=== PATIENT | female | born 1985 | race Caucasian/White ===

== ENCOUNTER 2020-10-05 13:07 | Outpatient (REF) | payer OTHER, SELFPAY | END 2020-10-05 13:08 | disposition home or self-care (01) | LOC: HO.LAB 13:07 | PROVIDERS: Visit Provider Nurse Practitioner Family | DX: J32.1 Chronic frontal sinusitis (principal) | CPT/HCPCS: 36415; U0003; U0005 ==

== ENCOUNTER 2021-07-27 08:46 | Outpatient (REF) | payer OTHER, SELFPAY ==
[2021-07-27 11:41] LABS: MANUAL DIFF FLAG NO
[2021-07-27 11:44] LABS: Basophils Absolute Auto 0.1 X10*3/uL (0.0-0.2); Basophils Percent Auto 0.9 % (0-2); Eosinophils Absolute Auto 0.5 X10*3/uL (0.0-0.4); Eosinophils Percent Auto 4.9 % (0-4); Hematocrit 43.8 % (37.0-47.0); Hemoglobin 14.3 g/dl (12.0-16.0); Imm Gran Abs Auto 0.06 X10*3/uL (0.00-0.03); Imm Gran Pct Auto 0.6 % (0.0-0.4); Lymphocytes Absolute Auto 2.5 X10*3/uL (1.2-4.9); Lymphocytes Percent Auto 24.4 % (20-40); Mean Corpuscular HGB Conc 32.6 g/dl (31.0-35.0); Mean Corpuscular Hemoglobin 29.7 pg (27.0-33.0); Mean Corpuscular Volume 91.1 fL (80.0-98.0); Monocytes Percent Auto 9.5 % (2-11); Neutrophils Absolute Auto 6.2 x10*3/uL (2.0-8.3); Neutrophils Percent Auto 59.7 % (45-73); Platelet Count 414 X10*3/uL (160-400); Red Blood Count 4.81 X10*6/uL (4.20-5.50); Red Cell Distribution Width 13.8 % (11.0-16.0); White Blood Count 10.3 X10*3/uL (4.8-10.8)
[2021-07-27 12:38] LABS: Alanine Aminotransferase 16 U/L (0-31); Albumin Level 4.3 g/dL (3.5-5.0); Alkaline Phosphatase 101 U/L (39-117); Anion Gap 14 (12-20); Aspartate Amino Transferase 20 U/L (5-31); Bilirubin Total 0.5 mg/dL (0.0-1.0); Blood Urea Nitrogen 12 mg/dL (9-16); Calcium 9.7 mg/dL (8.4-10.2); Carbon Dioxide 26 mmol/L (22-29); Chloride 104 mmol/L (96-108); Estimated Glomerular Filt Rate > 60; Glucose Random 109 mg/dL (60-115); Potassium 4.8 mmol/L (3.3-5.1); Sodium 139 mmol/L (135-145); Total Protein 7.2 g/dL (6.5-8.0)
== END 2021-07-27 08:47 | disposition home or self-care (01) ==
LOC: HO.HMGCLDS 08:46
PROVIDERS: PCP Internal Medicine; Visit Provider Internal Medicine
DX: B35.3 Tinea pedis (principal); L03.90 Cellulitis, unspecified
CPT/HCPCS: 36415; 80053; 85025

== ENCOUNTER 2022-01-01 13:49 | Emergency (ER) | payer OTHER, SELFPAY ==
[2022-01-01 15:11] VITALS: BP 150/73; PULSE 113; RESP 19; TEMP 36.4; O2SAT 98; BMI 27.8
--- NOTE | 2022-01-01 18:34 | ED.SKABFB ---
HPI - Skin/Abscess/Foreign Bdy General Chief complaint: Skin/Abscess/Foreign Body Stated complaint: wound check burn work related Time Seen by Provider: 01/01/22 18:15 Source: patient Mode of arrival: ambulatory Limitations: no limitations History of Present Illness HPI narrative: Patient presents emergency department for evaluation of a second-degree burn to her left forearm. She states that she has been followed by her primary care provider was initially being treated with Silvadene, 2 days ago was placed on doxycycline and Bactrim as there was concern for superficial infection. She was advised to have the [place] looked at as there was any worsening or spread. She states that since yesterday she has noticed some spreading of the erythema to the medial aspect of the burn, redness is described as small red bumps. Related Data Previous Rx's Medication Instructions Recorded cetirizine 10 mg tablet (Allergy 10 mg PO DAILY 90 Days #90 tab 07/30/20 Relief (cetirizine)) terbinafine HCl 250 mg tablet 250 mg PO DAILY 14 Days #14 tab 07/27/21 albuterol sulfate 90 mcg/actuation 1 inh INHALATION QID PRN #6.7 g 11/08/21 aerosol inhaler silver sulfadiazine 1 % topical 1 appl TOPICAL BID #25 g 12/28/21 cream (Silvadene) doxycycline hyclate 100 mg tablet 100 mg PO BID 7 Days #14 tab 12/30/21 sulfamethoxazole 800 1 tab PO Q12H 7 Days #14 tab 12/30/21 mg-trimethoprim 160 mg tablet (Bactrim DS) Allergies Allergy/AdvReac Type Severity Reaction Status Date / Time tree nuts Allergy Intermediate stomach Verified 12/30/21 08:13 upset, hives, itchiness seafood Allergy Unknown Anaphylaxis Verified 12/30/21 08:13 shellfish Allergy Unknown Anaphylaxis Verified 12/30/21 08:13 Review of Systems Review of Systems: skin: Positive second-degree burn to forearm Yes all other systems are reviewed and are negative PMFSH Past Medical History Attestation statement: The following information was validated with the patient. Source: old records reviewed Family History Family History Maternal Grandmother Substance use disorder Mental health disorder Paternal Grandfather No problems noted. Maternal Grandfather Mental health disorder Social History Social History Housing: Apartment Patient Tobacco Use Status: Current everyday Tobacco user Cigarettes Per Day: 10 e-Cigarette/Vaping Use: Never Used Advance Directives: No Advance Directives Information Provided: Yes Current occupational status: unemployed Physical Exam Vital Signs: Vital Signs: Last Vital Signs Temp 97.5 F 01/01/22 15:11 Pulse 69 01/01/22 18:48 Resp 16 01/01/22 18:48 BP 121/65 01/01/22 18:48 Pulse Ox 96 01/01/22 18:48 BMI result Body Mass Index 27.8 Vital signs have been reviewed as normal and appeared to be correct. Blood pressure normal.? Heart rate normal.? Respiration rate normal. Temperature normal.? Oxygen saturation normal. Appearance: Alert.?Oriented to person, place and time. No acute distress.?Normal affect. Eyes: Pupils equal, round and reactive to light.? ENT: Pharynx normal.?? Neck: Normal inspection.? Neck supple.?? CVS: Heart sounds normal. Normal heart rate and rhythm.? Pulses normal.?? Respiratory: No respiratory distress.? Lung sounds clear to auscultation bilaterally?? Abdomen: Soft and non-tender. ?? Skin: Skin warm and dry.? Normal skin color. Forearm second-degree burn, medial aspect where she was concern for spread with small erythematous vesicles, areas of the wound are weeping. Extremities: No lower extremity edema.? Neuro: Moves all extremities spontaneously. Sensation intact bilaterally. No motor deficits Ambulates with normal steady gait. Course Course Course Narrative: Patient is a 36-year-old female presenting seen in the emergency department for evaluation of secondary agree burn to her left forearm that she sustained while at work. Initially was treated with Silvadene cream, and 2 days ago was placed on doxycycline and Bactrim as there was concern for infection. Today the worsening or spread that she is concerned about presents as small vesicles to the medial aspect which appears to be no reactive dermatitis either from moisture buildup, weeping from the wound, or application of the Silvadene cream to healthy skin, cannot completely exclude reaction to the bandage she has been using to cover the arm. Advised patient to continue taking the antibiotics as currently prescribed. Follow up with her primary care doctor in 2 days as previously scheduled. Discussed reasons to return back to the emergency department. All questions were answered and patient was discharged home in stable condition. Discharge Plan Discharge Clinical Impression: Second degree burn of forearm Patient Disposition: Home, Self-Care Instructions: Second Degree Burn (ED) Additional Instructions: Continue taking the antibiotics as prescribed by your primary care provider, follow-up at the clinic in 2 days. May return to the emergency department at any time with any new or worsening symptoms or concerns. Prescriptions: No Action cetirizine [Allergy Relief (cetirizine)] 10 mg tablet 10 mg PO DAILY 90 Days Qty: 90 0RF terbinafine HCl 250 mg tablet 250 mg PO DAILY 14 Days Qty: 14 0RF sulfamethoxazole-trimethoprim [Bactrim DS] 800-160 mg tablet 1 tab PO Q12H 7 Days Qty: 14 0RF doxycycline hyclate 100 mg tablet 100 mg PO BID 7 Days Qty: 14 0RF albuterol sulfate 90 mcg/actuation HFA aerosol inhaler 1 inh inhalation QID PRN (Reason: shortness of breath or wheezing) Qty: 6.7 1RF silver sulfadiazine [Silvadene] 1 % cream 1 appl topical BID Qty: 25 0RF Rx Instructions: apply a 1.5 mm thickness Interventions: ED Discharge Assessment Last Done: 01/01/22 18:50 Discharge Date/Time: 01/01/22 18:51
[2022-01-01 18:48] VITALS: BP 121/65; PULSE 69; RESP 16; O2SAT 96
== END 2022-01-01 18:51 | disposition home or self-care (01) ==
PROVIDERS: Emergency Provider Internal Medicine; PCP Internal Medicine
DX: T22.212D Burn of second degree of left forearm, subsequent encounter (principal); T31.0 Burns involving less than 10% of body surface; B99.8 Other infectious disease; X08.8XXD Exposure to other specified smoke, fire and flames, subsequent encounter
CPT/HCPCS: 99282; 99283

== ENCOUNTER 2022-01-03 11:25 | Outpatient (REF) | payer OTHER, SELFPAY | END 2022-01-03 11:26 | disposition home or self-care (01) | LOC: HO.LNP 11:25 | PROVIDERS: Visit Provider Physician Assistant | DX: T22.219A Burn of second degree of unspecified forearm, initial encounter (principal); L03.114 Cellulitis of left upper limb | CPT/HCPCS: 87071; 87205 ==

== ENCOUNTER 2022-01-07 08:00 | Outpatient (RCR) | payer OTHER, SELFPAY | END 2022-01-31 11:50 | disposition home or self-care (01) | LOC: HO.WCC 08:00 | PROVIDERS: PCP Internal Medicine; Visit Provider Physician Assistant | DX: T22.212D Burn of second degree of left forearm, subsequent encounter (principal); L23.89 Allergic contact dermatitis due to other agents; T31.0 Burns involving less than 10% of body surface; X15.0XXD Contact with hot stove (kitchen), subsequent encounter; Z79.2 Long term (current) use of antibiotics; Z79.52 Long term (current) use of systemic steroids; Z87.891 Personal history of nicotine dependence | CPT/HCPCS: 16020; 99212 ==

== ENCOUNTER 2022-02-08 12:51 | Outpatient (REF) | payer OTHER, SELFPAY ==
[2022-02-08 13:53] LABS: Hematocrit 41.9 % (37.0-47.0); Hemoglobin 13.8 g/dl (12.0-16.0); Mean Corpuscular HGB Conc 32.9 g/dl (31.0-35.0); Mean Corpuscular Hemoglobin 29.6 pg (27.0-33.0); Mean Corpuscular Volume 89.9 fL (80.0-98.0); Mean Platelet Volume 9.8 fL (9.4-12.3); Platelet Count 233 X10*3/uL (160-400); Red Blood Count 4.66 X10*6/uL (4.20-5.50); Red Cell Distribution Width 13.5 % (11.0-16.0); White Blood Count 5.7 X10*3/uL (4.8-10.8)
[2022-02-08 14:25] LABS: Alanine Aminotransferase 20 U/L (0-31); Alkaline Phosphatase 74 U/L (39-117); Anion Gap 11 (12-20); Aspartate Amino Transferase 41 U/L (5-31); Bilirubin Direct < 0.2 mg/dL (0.0-0.5); Bilirubin Total < 0.2 mg/dL (0.0-1.0); Blood Urea Nitrogen 11 mg/dL (9-16); Calcium 9.1 mg/dL (8.4-10.2); Carbon Dioxide 25 mmol/L (22-29); Chloride 109 mmol/L (96-108); Estimated Glomerular Filt Rate > 60; Glucose Random 87 mg/dL (60-115); Potassium 4.9 mmol/L (3.3-5.1); Sodium 140 mmol/L (135-145)
[2022-02-08 16:04] LABS: Albumin Level 4.2 g/dL (3.5-5.0)
== END 2022-02-08 12:52 | disposition home or self-care (01) ==
LOC: HO.HMGCLDS 12:51
PROVIDERS: PCP Internal Medicine; Visit Provider Internal Medicine
DX: K52.9 Noninfective gastroenteritis and colitis, unspecified (principal)
CPT/HCPCS: 36415; 80048; 80076; 85027

== ENCOUNTER 2022-06-24 08:39 | Outpatient (REF) | payer OTHER, SELFPAY ==
[2022-06-24 09:12] LABS: Binax Internal Control QC Valid; Binax Now Covid-19 Ag Negative (Negative)
== END 2022-06-24 08:40 | disposition home or self-care (01) ==
LOC: HO.HMGCLDS 08:39
PROVIDERS: PCP Internal Medicine; Visit Provider Emergency Medicine
DX: Z20.822 Contact with and (suspected) exposure to COVID-19 (principal); J06.9 Acute upper respiratory infection, unspecified
CPT/HCPCS: 87811; C9803

== ENCOUNTER 2023-02-07 15:51 | Emergency (ER) | payer OTHER, SELFPAY ==
--- NOTE | ~2023-02-07 | CT_ITS ---
EXAMINATION: CT ABDOMEN AND PELVIS WITHOUT CONTRAST CLINICAL INFORMATION: Bilateral flank pain and hematuria. COMPARISON: None available. TECHNIQUE: Multidetector volumetric imaging was performed from the superior aspect of the liver through the pubic symphysis. Sagittal and coronal reformatted images were obtained on the technologist's workstation. This CT examination was performed using dose optimization techniques as appropriate, variously including the following: *Automated exposure control *Adjustment of mA and/or kV according to patient size (this includes techniques or standardized protocols for targeted exams where dose is matched to indication/reason for exam; i.e. extremities or head) *Use of iterative reconstruction technique DLP: 593 mGy-cm FINDINGS: LUNG BASES: The visualized lung bases are unremarkable. LIVER, GALLBLADDER, AND BILIARY TREE: The noncontrast liver is normal in size and contour. No biliary ductal dilatation is present. The gallbladder is unremarkable with no evidence of radiopaque gallstones, gallbladder wall thickening, or obvious pericholecystic inflammatory changes. PANCREAS: Unremarkable. SPLEEN: Unremarkable. ADRENAL GLANDS: Unremarkable. KIDNEYS AND URETERS: The kidneys are symmetric in size. No renal or ureteral calculus. No hydronephrosis or perinephric stranding. BLADDER: Decompressed. GASTROINTESTINAL TRACT: Wall thickening of the mid small bowel loops in the left upper abdomen with mild surrounding inflammatory changes. No small bowel obstruction. Appendix is within normal limits. ABDOMINAL WALL: No significant hernia is appreciated. LYMPH NODES: No bulky abdominal or pelvic lymphadenopathy. VASCULAR: Normal caliber abdominal aorta. PELVIC VISCERA: The uterus and adnexa are unremarkable. OSSEOUS STRUCTURES: No destructive bone lesions. CT/CT abdomen pelvis wo IV con IMPRESSION: No nephrolithiasis or hydronephrosis. Mid small bowel wall thickening with mild surrounding inflammatory changes. This may represent an infectious or inflammatory enteritis. Advise clinical correlation.
[2023-02-07 16:32] VITALS: BP 144/94; PULSE 90; RESP 18; TEMP 36.6; O2SAT 95
[2023-02-07 17:50] LABS: Appearance Urine Clear; Color Urine Yellow; Glucose Urine UA Negative (Negative); Leukocyte Esterase Urine Negative (Negative); Nitrite Urine Negative (Negative); PH 5.5 (5.0-9.0); Specific Gravity - Urine >= 1.030 (1.005-1.025); UMIC TRIGGER UACC YES; Urine Blood Trace (Negative); Urine Ketones 15 mg/dL (Negative); Urine Protein Negative (Neg-Trace)
[2023-02-07 17:57] LABS: Bacteria Urine 1+ (None Seen); Hyaline Casts Urine 0-2 /LPF (0-2); WBC Urine 0-5 /HPF (0-5)
[2023-02-07 19:03] VITALS: BP 129/76; PULSE 61; RESP 18; TEMP 36.6; O2SAT 98
--- NOTE | 2023-02-07 21:13 | ED.BACK ---
HPI - Back Pain/Injury General Chief Complaint: Back Pain/Injury Stated Complaint: Lower back pain Time Seen by Provider: 02/07/23 20:17 Source: patient Mode of arrival: ambulatory Limitations: no limitations History of Present Illness HPI Narrative: Patient is a 37-year-old female presents emergency department for evaluation of lower back pain. Reports onset approximately 1 month ago with intermittent in nature. Two weeks ago pain was worsening. She was evaluated at an urgent care center, received an injection of Toradol and subsequently was discharged home with Toradol p.o., Lidoderm patches topically, and cyclobenzaprine. She reports minimal improvement with these medications. She states that she return to work after 1 week, and she was working short chips but still experiencing pain. Yesterday she worked a longer shift in pain was much more severe upon her return home. She does not have a follow-up with her PCP until February 24. She endorses a single episode of vomiting 2 days ago but has had persistent nausea with this. Denies recent precipitating injury, fevers, chills, burning with micturition, urinary frequency/urgency/hesitancy, bladder or bowel dysfunction, numbness or tingling of the perineum. She has been experiencing intermittent numbness of the bilateral legs which she reports is not uncommon for her to experience with sciatica.. Denies any recent surgical procedures, any known immune compromising conditions, personal history of cancer, or IV drug usage. MD elicited complaint: back pain Related Data Home Medications Medication Instructions Recorded Confirmed levocetirizine 5 mg tablet 5 mg PO DAILY 12/26/22 Previous Rx's Medication Instructions Recorded albuterol sulfate 90 mcg/actuation 1 inh inhalation QID PRN shortness 11/08/21 aerosol inhaler of breath or wheezing #6.7 grams fluticasone propionate 50 1 spray intranasal DAILY #9.9 mL 12/26/22 mcg/actuation nasal spray,suspension (Flonase Allergy Relief) miconazole nitrate 2 % topical 1 appl topical BID PRN pain (scale 12/30/22 cream (Antifungal (miconazole)) score 7-10) 7 days #28 grams cyclobenzaprine 10 mg tablet 10 mg PO BEDTIME PRN muscle spasm 01/24/23 #14 tabs ketorolac 10 mg tablet 10 mg PO Q8H PRN pain #15 tabs 06/06/23 lidocaine 4 % topical patch 1 patch topical DAILY PRN pain #15 01/24/23 (AsperFlex (lidocaine)) ea prednisone 20 mg tablet 40 mg PO DAILY #10 tabs 02/07/23 Allergies Allergy/AdvReac Type Severity Reaction Status Date / Time tree nut Allergy Intermediate Stomach Verified 02/07/23 16:36 upset, hived, itchiness seafood Allergy Unknown Anaphylaxis Verified 02/07/23 16:36 shellfish derived Allergy Unknown Anaphylaxis Verified 02/07/23 16:36 Review of Systems Review of Systems: Yes all other systems are reviewed and are negative [facility] Past Medical History Attestation statement: The following information was validated with the patient. Source: old records reviewed Family History Family History Maternal Grandmother Substance use disorder Mental health disorder Paternal Grandfather No problems noted. Maternal Grandfather Mental health disorder Social History Social History Housing: Apartment Patient Tobacco Use Status: Current everyday Tobacco user Cigarettes Per Day: 10 e-Cigarette/Vaping Use: Never Used Advance Directives: No Advance Directives Information Provided: No Current occupational status: unemployed Physical Exam Vital Signs: Vital Signs: Last Vital Signs Temp 98 F 02/07/23 19:03 Pulse 61 02/07/23 19:03 Resp 18 02/07/23 19:03 BP 129/76 02/07/23 19:03 Pulse Ox 98 02/07/23 19:03 O2 Del Method Room Air 02/07/23 19:03 BMI result Body Mass Index 30.0 Appearance: Alert.?Oriented to person, place and time. No acute distress.?Normal affect. Eyes: Pupils equal, round and reactive to light.? ENT: Pharynx normal.?? Neck: Normal inspection.? Neck supple.?? CVS: Heart sounds normal. Normal heart rate and rhythm.? Pulses normal; bilateral radial pulses 2+, bilateral posterior tibial/dorsalis pedis pulses 2+.? Respiratory: No respiratory distress.? Lung sounds clear to auscultation bilaterally?? Abdomen: Soft and non-tender. Normoactive bowel sounds. No pulsatile mass.? Skin: Skin warm and dry.? Normal skin color.? Normal skin turgor.?? Extremities: No lower extremity edema.? No calf ttp? Back: + mild paraspinal muscular tenderness from lumbar region to coccyx. Positive right CVA tenderness. No midline spinal tenderness, step-off's, or deformity. Full ROM intact in bilateral lower extremities. Straight leg test negative on right; Straight leg test negative on left. No rashes, lesions, areas of induration or fluctuance, or signs of infection noted., Neuro: Moves all extremities spontaneously. 5/5 strength in hip extension/flexion, abduction, adduction. Sensation to light touch intact bilaterally. Patellar and Achilles reflex 2+ bilaterally. No ataxia, gait normal and steady.. No focal neuro deficits. Course Reevaluation(s) Reevaluation #1: Serum labs reveal a mild leukocytosis with WBC 13.2, CMP unremarkable. CT of the abdomen and pelvis reveals no nephrolithiasis or hydronephrosis. There is mention of mid small bowel wall thickening and mild surrounding inflammatory changes which may represent enteritis. At the time of my examination this does not correlate clinically, she is not having being any abdominal pain, no signs of acute abdomen, no active nausea vomiting or diarrhea. At this time I do feel pain to be most likely musculoskeletal in nature; will trial a course of oral corticosteroid. Reviewed these findings with patient, and advised outpatient follow-up with her primary care provider for further evaluation. All questions answered. Discussed worrisome signs and symptoms that would warrant re-evaluation in the emergency department. Time: 21:55 Medical Decision Making Medical Decision Making MDM Narrative: Patient is a 37-year-old female presents emergency department for evaluation of back pain, reported history of sciatica. At the time examination she is overall well-appearing, she is ambulatory with a slow unsteady gait. There is no focal neurological deficits. Reviewed urinalysis obtained from triage which does not show overt evidence of urinary tract infection and she is not symptomatic of UTI, there is however presence of microscopic hematuria in the absence of any current menstruating. I discussed with patient plan of care, pain may be consistent with muscular nature although cannot exclude herniated disc, but additionally may be in relation to possible nephrolithiasis. Will obtain serum labs in addition to noncontrast CT of the abdomen and pelvis for further evaluation. Patient offered ketorolac administration at this time, however she declines. History and physical examination at this time not consistent with spinal fracture, spinal infection, epidural abscess, or dissection. She has no high-risk past medical history including incontinence, fever, immunosuppression, recent surgery or lumbar puncture, coagulopathy, significant trauma, recent unintentional weight loss, pulsatile mass, history of cancer, history of TB, history of IV drug use that would warrant MRI or CT. Not consistent with ectopic , pyelonephritis, urinary tract infection, pelvic infection, appendicitis, diverticulitis. On exam no concern for cauda equina syndrome. Differential Diagnosis Differential Diagnoses: The differential diagnosis associated with the presentation includes (As noted above) Lab Data MDM Lab Attestation statement: I reviewed the patient's lab results. 02/07/23 21:11 02/07/23 21:11 Labs: Lab Results 02/07/23 02/07/23 02/07/23 Range/Units 17:01 21:11 21:11 WBC 13.2 H (4.8-10.8) X10*3/uL RBC 4.28 (4.20-5.50) X10*6/uL Hgb 12.9 (12.0-16.0) g/dl Hct 37.7 (37.0-47.0) % MCV 88.1 (80.0-98.0) fL MCH 30.1 (27.0-33.0) pg MCHC 34.2 (31.0-35.0) g/dl RDW 13.6 (11.0-16.0) % Plt Count 356 D (160-400) X10*3/uL MPV 9.2 L (9.4-12.3) fL Immature Gran % (Auto) 0.7 H (0.0-0.4) % Neut % (Auto) 61.6 (45-73) % Lymph % (Auto) 25.6 (20-40) % Deuel % (Auto) 8.7 (2-11) % Eos % (Auto) 2.7 (0-4) % Baso % (Auto) 0.7 (0-2) % Lymph # (Auto) 3.4 (1.2-4.9) X10*3/uL Deuel # (Auto) 1.2 (0.1-1.2) X10*3/uL Eos # (Auto) 0.4 (0.0-0.4) X10*3/uL Baso # (Auto) 0.1 (0.0-0.2) X10*3/uL Abs Immat Gran (auto) 0.09 H (0.00-0.03) X10*3/uL Absolute Neuts (auto) 8.1 (2.0-8.3) x10*3/uL Absolute Nucleated RBC 0.000 (0.0-0.012) X10*3/uL Nucleated RBC % (auto) 0.0 (0.0-0.2) /100WBC Sodium 139 (135-145) mmol/L Potassium 3.9 D (3.3-5.1) mmol/L Chloride 107 (96-108) mmol/L Carbon Dioxide 22 (22-29) mmol/L Anion Gap 14 (12-20) BUN 13 (9-16) mg/dL Creatinine 0.75 (0.5-1.4) mg/dL Estim Creat Clear Calc 104.6 Estimated GFR > 60 Random Glucose 88 (60-115) mg/dL Calcium 9.3 (8.4-10.2) mg/dL Total Bilirubin 0.5 (0.0-1.0) mg/dL AST 20 (5-31) U/L ALT 13 (0-31) U/L Alkaline Phosphatase 80 (39-117) U/L Total Protein 6.8 (6.5-8.0) g/dL Albumin 3.9 (3.5-5.0) g/dL Urine Color Yellow Urine Appearance Clear Urine pH 5.5 (5.0-9.0) Ur Specific Plush >= 1.030 H (1.005-1.025) Urine Protein Negative (Neg-Trace) mg/dL Urine Glucose (UA) Negative (Negative) mg/dL Urine Ketones 15 (Negative) mg/dL Urine Blood Trace H (Negative) Urine Nitrite Negative (Negative) Ur Leukocyte Esterase Negative (Negative) Urine RBC 11-20 H (0-2) /HPF Urine WBC 0-5 (0-5) /HPF Ur Squamous Epith Cells 6-10 (0-2) /HPF Urine Bacteria 1+ (None Seen) Hyaline Casts 0-2 (0-2) /LPF Independent Interpretation I performed an independent interpretation of an: CT Scan Radiology Impression Discussion of test interpretation with radiology: I have reviewed the radiologist's reading. Radiologist Impression: CT/CT abdomen pelvis wo IV con IMPRESSION: No nephrolithiasis or hydronephrosis. ? Mid small bowel wall thickening with mild surrounding inflammatory changes. This may represent an infectious or inflammatory enteritis. Advise clinical correlation. Discharge Plan Discharge Clinical Impression: Lumbar radiculopathy Patient Disposition: Home, Self-Care Instructions: Lumbar Radiculopathy (ED) Additional Instructions: As we discussed your blood work was overall normal today. There was some evidence of microscopic blood in your urine, obtained a CT scan today in the ED which does not show any evidence of kidney stones. Please contact your primary care provider to arrange for further follow-up regarding microscopic blood in your urine. At this time, your pain is most likely due to sciatica/lumbar radiculopathy. You have trialed muscle relaxers in addition to ketorolac, and Lidoderm patches with minimal relief. I have sent a prescription for a short course of steroids to the pharmacy. Please contact your primary care provider to arrange for further treatment and evaluation. You may return back to emergency department any new or worsening symptoms or concerns. Prescriptions: New prednisone 20 mg tablet 40 mg PO DAILY Qty: 10 0RF No Action levocetirizine 5 mg tablet 5 mg PO DAILY fluticasone propionate [Flonase Allergy Relief] 50 mcg/actuation spray,suspension 1 spray intranasal DAILY Qty: 9.9 1RF Rx Instructions: administer into each nostril miconazole nitrate [Antifungal (miconazole)] 2 % cream 1 appl topical BID PRN (Reason: pain (scale score 7-10)) 7 Days Qty: 28 0RF albuterol sulfate 90 mcg/actuation HFA aerosol inhaler 1 inh inhalation QID PRN (Reason: shortness of breath or wheezing) Qty: 6.7 1RF cyclobenzaprine 10 mg tablet 10 mg PO BEDTIME PRN (Reason: muscle spasm) Qty: 14 0RF lidocaine [AsperFlex (lidocaine)] 4 % adhesive patch,medicated 1 patch topical DAILY PRN (Reason: pain) Qty: 15 0RF ketorolac 10 mg tablet 10 mg PO Q8H PRN (Reason: pain) Qty: 15 0RF Referrals: Courtney Beltre MD [Primary Care Provider] - Interventions: ED Discharge Assessment Last Done: 02/07/23 23:14 Discharge Date/Time: 02/07/23 23:14
[2023-02-07 21:15] LABS: MANUAL DIFF FLAG NO
[2023-02-07 21:17] LABS: Basophils Absolute Auto 0.1 X10*3/uL (0.0-0.2); Basophils Percent Auto 0.7 % (0-2); Eosinophils Absolute Auto 0.4 X10*3/uL (0.0-0.4); Eosinophils Percent Auto 2.7 % (0-4); Hematocrit 37.7 % (37.0-47.0); Hemoglobin 12.9 g/dl (12.0-16.0); Imm Gran Abs Auto 0.09 X10*3/uL (0.00-0.03); Imm Gran Pct Auto 0.7 % (0.0-0.4); Lymphocytes Absolute Auto 3.4 X10*3/uL (1.2-4.9); Lymphocytes Percent Auto 25.6 % (20-40); Mean Corpuscular HGB Conc 34.2 g/dl (31.0-35.0); Mean Corpuscular Hemoglobin 30.1 pg (27.0-33.0); Mean Corpuscular Volume 88.1 fL (80.0-98.0); Mean Platelet Volume 9.2 fL (9.4-12.3); Monocytes Absolute Auto 1.2 X10*3/uL (0.1-1.2); Monocytes Percent Auto 8.7 % (2-11); Neutrophils Absolute Auto 8.1 x10*3/uL (2.0-8.3); Neutrophils Percent Auto 61.6 % (45-73); Platelet Count 356 X10*3/uL (160-400); Red Blood Count 4.28 X10*6/uL (4.20-5.50); Red Cell Distribution Width 13.6 % (11.0-16.0); White Blood Count 13.2 X10*3/uL (4.8-10.8)
[2023-02-07 21:43] LABS: Alanine Aminotransferase 13 U/L (0-31); Albumin Level 3.9 g/dL (3.5-5.0); Alkaline Phosphatase 80 U/L (39-117); Anion Gap 14 (12-20); Aspartate Amino Transferase 20 U/L (5-31); Bilirubin Total 0.5 mg/dL (0.0-1.0); Blood Urea Nitrogen 13 mg/dL (9-16); Calcium 9.3 mg/dL (8.4-10.2); Carbon Dioxide 22 mmol/L (22-29); Chloride 107 mmol/L (96-108); Creatinine Clr Calc Pharmacy 104.6; Estimated Glomerular Filt Rate > 60; Glucose Random 88 mg/dL (60-115); Potassium 3.9 mmol/L (3.3-5.1); Sodium 139 mmol/L (135-145); Total Protein 6.8 g/dL (6.5-8.0)
== END 2023-02-07 23:14 | disposition home or self-care (01) ==
PROVIDERS: Nurse Practitioner Family; Emergency Provider Emergency Medicine; PCP Internal Medicine
DX: M54.16 Radiculopathy, lumbar region (principal); M54.50 Low back pain, unspecified; R31.9 Hematuria, unspecified; F17.210 Nicotine dependence, cigarettes, uncomplicated; Z71.6 Tobacco abuse counseling; Z79.899 Other long term (current) drug therapy
CPT/HCPCS: 36415; 74176; 80053; 81001; 85025; 99284

== ENCOUNTER 2023-02-24 10:19 | Outpatient (AMB) | payer OTHER, SELFPAY ==
--- NOTE | 2023-02-24 10:24 | A.OFFVIS_ITS ---
Intake Vital Signs 02/24/23 10:25 Height 5 ft 4 in Weight 180 lb BMI 30.9 BP 130/76 Blood Pressure Location Lt brachial Position Sitting Respiration 16 Pulse 66 Pulse Source Pulse Oximeter Pulse Oximetry (%) 97 Oxygen Delivery Method Room Air Intake Visit Reasons: back pain Allergies tree nut Allergy (Intermediate, Verified 02/24/23 10:24) Stomach upset, hived, itchiness seafood Allergy (Unknown, Verified 02/24/23 10:24) Anaphylaxis shellfish derived Allergy (Unknown, Verified 02/24/23 10:24) Anaphylaxis HPI back pain HPI Details 37-year-old female presenting today for a back pain. The patient was referred by Dr. Caro. The patient visited her primary care physician on 02/08/23 for evaluation of low back pain. The patient has been experiencing lower back pain for about two months. She describes her pain as intermittent in nature. The patient reports that her pain is localized in the lower back, which radiates to the sacrum and then radiates to bilateral lower extremities just above the knees. She reports that pain is worse with movement and better at rest. She had a tailbone fracture approximately 10 years ago, and the pain feels similar. She denies trauma. She has visited physical therapy in the past for a tailbone fracture. She has a history of intense physical activities, including dancing, stretching, sports, and jumping in the past. She works at the restaurant. She was working double shift at her job, and at the end of the shift, her back started bothering at the start of February 10. She took two days leave from work and was seen at urgent care. She also took muscle relaxants with minimal benefits. She again started working, but her pain kept worsening to the point that she cried in her car due to pain after each shift. She started her physical therapy this morning. She has not tried a coccyx pillow in the past.? She was evaluated in a walk-in clinic and given a Toradol injection and Lidoderm patch script along with cyclobenzaprine. Medication did not help her much; she returned to work a week before her arrival in the emergency room. She was working short shifts as she continued to have pain. Denies fevers, chills, IV drug abuse, malignancy, saddle paresthesia, weakness, urinary/bowel incontinence and retention, nausea, vomiting, abdominal pain, chest pain, and shortness of breath. [facility] Medical History (Updated 03/02/23 @ 13:15 by Abelardo Ontiveros MD) Acute sinus infection Back pain Cellulitis Fall (on) (from) other stairs and steps, initial encounter Folliculitis Gastroenteritis Lumbar spine pain Onychomycosis Regional enteritis of small intestine Second degree burn of forearm Sinusitis chronic, frontal Superficial burn of forearm Tinea pedis Trapezius muscle spasm Upper respiratory tract infection Family History Maternal Grandmother Substance use disorder Mental health disorder Paternal Grandfather No problems noted. Maternal Grandfather Mental health disorder Social History Housing: Apartment Patient Tobacco Use Status: Current everyday Tobacco user Cigarettes Per Day: 10 e-Cigarette/Vaping Use: Never Used Current occupational status: unemployed Cognitive needs: No Hearing needs: No Vision needs: Yes Review of Systems Const All systems reviewed & are unremarkable except as noted in HPI and below Physical Exam Vital Signs: Last Vital Signs Pulse 66 02/24/23 10:25 Resp 16 02/24/23 10:25 BP 130/76 02/24/23 10:25 Pulse Ox 97 02/24/23 10:25 Oxygen Delivery Method Room Air 02/24/23 10:25 BMI result Body Mass Index 30.9 General: Appears afebrile. Alert and oriented. Mood and affect appropriate. Follows and participates in conversation appropriately. Respiratory effort is unlabored. Able to transition from sit to stand unassisted. Ambulates with bilaterally normal heel strike and toe off. Results Reviewed Results Reviewed: 02/07/23: CT ABDOMEN AND PELVIS WITHOUT CONTRAST FINDINGS: LUNG BASES: The visualized lung bases are unremarkable. LIVER, GALLBLADDER, AND BILIARY TREE: The non contrast liver is normal in size and contour. No biliary ductal dilatation is present. The gallbladder is unremarkable with no evidence of radiopaque gallstones, gallbladder wall thickening, or obvious pericholecystic inflammatory changes. PANCREAS: Unremarkable. SPLEEN: Unremarkable. ADRENAL GLANDS: Unremarkable. KIDNEYS AND URETERS: The kidneys are symmetric in size. No renal or ureteral calculus. No hydronephrosis or perinephric stranding. BLADDER: Decompressed. GASTROINTESTINAL TRACT: Wall thickening of the mid small bowel loops in the left upper abdomen with mild surrounding inflammatory changes. No small bowel obstruction. Appendix is within normal limits. ABDOMINAL WALL: No significant hernia is appreciated. LYMPH NODES: No bulky abdominal or pelvic lymphadenopathy. VASCULAR: Normal caliber abdominal aorta. PELVIC VISCERA: The uterus and adnexa are unremarkable. OSSEOUS STRUCTURES: No destructive bone lesions. IMPRESSION: No nephrolithiasis or hydronephrosis. Mid small bowel wall thickening with mild surrounding inflammatory changes. This may represent an infectious or inflammatory enteritis. Assessment & Plan Assessment & Plan (1) Degeneration, intervertebral disc, lumbosacral: Comment: L5/S1 Code(s): M51.37 - Other intervertebral disc degeneration, lumbosacral region Plan 37-year-old female with low back pain likely secondary to discogenic source with degeneration of the L5-S1 disc on CT of the abdomen pelvis with vacuum disc phenomenon visible on review of films. She is relatively young. I did discuss surgical augmentation briefly with her but given her age we discussed exhausting conservative management before going for the surgical route. I encouraged her to continue with aggressive physical therapy, weight less exercise such as swimming and incorporating inversion therapy into her routine. She will also continue with core strengthening and stretching as tolerated during the course of her day. I advised her that we should trial this regimen for at least a year before reimaging her back and see if her disc degeneration appears to be improving, staying stable or worsening. I n that timeframe, if she needs assistance with interventional therapies including trigger point injections, epidural steroid injections or facet interventions to help keep her up with her work pace, we can consider those in due time. The patient will follow-up in 2 months after an initial trial of physical therapy to assess need for next steps. The patient is in understanding. Scribed for Dr. Ontiveros by Pavel Jones, medical lab tech instructor, on 02/24/2023. I, Dr. Ontiveros, have personally reviewed and agree with the information entered by the scribe. Coding Level of Care Code New Pt Level 4 (67330) Diagnoses Degeneration, intervertebral disc, lumbosacral M51.37
[2023-02-24 10:25] VITALS: BP 130/76; PULSE 66; RESP 16; O2SAT 97; BMI 30.9
== END 2023-02-24 11:13 | disposition home or self-care (01) ==
PROVIDERS: PCP Internal Medicine; Visit Provider Internal Medicine
DX: M51.37 Other intervertebral disc degeneration, lumbosacral region (principal)
CPT/HCPCS: 99204

== ENCOUNTER → 2023-02-24 10:19 | Outpatient (BNVA) | payer OTHER, SELFPAY | PROVIDERS: PCP Internal Medicine; Visit Provider Internal Medicine | DX: M51.37 Other intervertebral disc degeneration, lumbosacral region (principal) | CPT/HCPCS: 99202 ==

== ENCOUNTER 2023-03-17 10:46 | Outpatient (AMB) | payer OTHER, SELFPAY ==
--- NOTE | 2023-03-17 10:47 | MHC.PC.OV ---
Vital Signs 03/17/23 10:48 Height 5 ft 4 in Weight 180 lb 8 oz BMI 31.0 BP 132/76 Blood Pressure Location Rt brachial Position Sitting Pulse 72 Pulse Source Pulse Oximeter Pulse Oximetry (%) 97 Intake Visit Reasons: Referral Req~ Needle Grinder Required: No Accompanied by: Self / Same As Patient Allergies tree nut Allergy (Intermediate, Verified 03/17/23 10:47) Stomach upset, hived, itchiness seafood Allergy (Unknown, Verified 03/17/23 10:47) Anaphylaxis shellfish derived Allergy (Unknown, Verified 03/17/23 10:47) Anaphylaxis Medication List - Last Reconciled 03/17/23 by Courtney Beltre MD levocetirizine (Xyzal) 5 mg PO DAILY lidocaine 4% (AsperFlex (lidocaine)) 1 patch topical DAILY PRN Tobacco use date assessed: 02/08/23 Dental Screening Dental Screen Date: 03/17/23 Did you have a dental visit in the last 12 months?: Yes Did you have a dental problem in the last 6 months where you did not have access to dental care?: No Was dental information given to patient?: Patient has dentist HPI Referral Req~ HPI Details Patient is 37-year-old female came in today to talk about her back She has seen Pain Management [facility] and physical therapy was started, patient was instructed to come back after physical therapy to talk about her other interventional choices. She is going through physical therapy feeling little better but continued to have pain lower back radiating to right leg with numbness in her toes. Patient have herniated disc L5-S1 that was shown on CT scan. I have ordered MRI of her spine patient would like to see a neurosurgeon to discuss with them if surgery will help her. 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 I have sent gabapentin 100 mg to be taken at night that might help her with time. She is also requesting Flonase nasal spray which I have sent for her. Follow-up after MRI [facility] Medical History Acute sinus infection Back pain Cellulitis Fall (on) (from) other stairs and steps, initial encounter Folliculitis Gastroenteritis Lumbar spine pain Onychomycosis Regional enteritis of small intestine Second degree burn of forearm Sinusitis chronic, frontal Superficial burn of forearm Tinea pedis Trapezius muscle spasm Upper respiratory tract infection Family History Maternal Grandmother Substance use disorder Mental health disorder Paternal Grandfather No problems noted. Maternal Grandfather Mental health disorder Social History Housing: Apartment Patient Tobacco Use Status: Current everyday Tobacco user Cigarettes Per Day: 10 e-Cigarette/Vaping Use: Never Used Current occupational status: unemployed Cognitive needs: No Hearing needs: No Vision needs: Yes Questionnaire Thrive Questionnaire Date Thrive assessed: 07/27/21 EVON-7 AMB Questionnaire EVON-7 Date EVON - 7 assessed: 07/27/21 Source: Developed by Drs. Norman Rehman, Astrid Ponce, Mihir James and colleagues, with an educational violet from [employer]. Review of Systems Const Denies chills and Denies fever(s) ENT Denies epistaxis and Denies nasal discharge Card Denies chest pain Resp Denies chest congestion, Denies cough and Denies hemoptysis GI Denies diarrhea and Denies nausea Skin/Breast Denies rash Neuro Reports no additional complaints Psych Reports no additional complaints Endo Reports no additional complaints Physical exam (Primary Care) Vital Signs: Last Vital Signs Pulse 72 03/17/23 10:48 BP 132/76 03/17/23 10:48 Pulse Ox 97 03/17/23 10:48 BMI result Body Mass Index 31.0 Tobacco/Smoking Status: Tobacco use Status Tobacco use date assessed 02/08/23 03/17/23 10:47 Patient Tobacco Use Status Current everyday Tobacco 03/17/23 10:47 e-Cigarette/Vaping Use Never Used 03/17/23 10:47 Thrive Assessment: Date of Thrive Assessment Date Thrive assessed 07/27/21 03/17/23 10:47 Const General: cooperative, comfortable and no acute distress Orientation/consciousness: patient oriented x3 HENMT Head: Yes normocephalic Eyes General: appearance normal, both eyes and all related structures Neck Neck: Yes supple Resp Effort & Inspection: normal respiratory effort, no cough and no stridor Cardio Rhythm: regular rhythm Heart sounds: S1 normal heart sound present and S2 normal heart sound present Skin General skin exam: turgor normal Neuro Other: Street leg slightly positive right side, motor sensory intact General: patient oriented x3, tone normal and moves all extremities Gait exam (Neuro): Antalgic gait present Extrem Right lower extremity: no edema Left lower extremity: no edema Assessment and Plan Assessment & Plan (1) Degeneration, intervertebral disc, lumbosacral: Comment: L5/S1 Code(s): M51.37 - Other intervertebral disc degeneration, lumbosacral region (2) Right lumbar radiculitis: Code(s): M54.16 - Radiculopathy, lumbar region (3) Paresthesia of right leg: Code(s): R20.2 - Paresthesia of skin Plan Patient is 37-year-old female came in today to talk about her back She has seen Pain Management [facility] and physical therapy was started, patient was instructed to come back after physical therapy to talk about her other interventional choices. She is going through physical therapy feeling little better but continued to have pain lower back radiating to right leg with numbness in her toes. Patient have herniated disc L5-S1 that was shown on CT scan. I have ordered MRI of her spine patient would like to see a neurosurgeon to discuss with them if surgery will help her. 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 I have sent gabapentin 100 mg to be taken at night that might help her with time. She is also requesting Flonase nasal spray which I have sent for her. Follow-up after MRI Orders: Orders MR lumbar spine wo con Today M51.37 - Other intervertebral disc degeneration, lumbosacral region, M54.16 - Radiculopathy, lumbar region, R20.2 - Paresthesia of skin Medications: New fluticasone propionate 50 mcg/actuation (Flonase Allergy Relief) administer into each nostril 1 spray intranasal DAILY 16 grams 0RF gabapentin 100 mg PO BEDTIME 30 caps 0RF Coding Level of Care Code Est Pt Level 4 (42168) Diagnoses Degeneration, intervertebral disc, lumbosacral M51.37 Right lumbar radiculitis M54.16 Paresthesia of right leg R20.2
[2023-03-17 10:48] VITALS: BP 132/76; PULSE 72; O2SAT 97; BMI 31.0
== END 2023-03-17 12:37 | disposition home or self-care (01) ==
PROVIDERS: PCP Internal Medicine; Visit Provider Internal Medicine
DX: M51.37 Other intervertebral disc degeneration, lumbosacral region (principal); M54.16 Radiculopathy, lumbar region; R20.2 Paresthesia of skin
CPT/HCPCS: 99214

== ENCOUNTER 2023-03-28 09:22 | Outpatient (AMB) | payer OTHER, SELFPAY ==
--- NOTE | 2023-03-28 09:24 | A.OFFVIS_ITS ---
Intake Vital Signs 03/28/23 09:26 Height 5 ft 4 in Weight 176 lb 5.917 oz BMI 30.3 BP 92/54 L Blood Pressure Location Lt brachial Position Sitting Pulse 53 Intake Visit Reasons: Heartburn, abn radiology findings Intake Note: Sol presents in the office as a new patient for Heartburn and abnormal findings on readiology. CC: She has heartburn and she has been dealing with nausea her whole life. She found out at a young age that she has a lot of allergies. Principal Technical Specialist Required: No Allergies tree nut Allergy (Intermediate, Verified 03/28/23 09:26) Stomach upset, hived, itchiness fish oil Allergy (Mild, Verified 03/28/23 09:28) Unknown seafood Allergy (Unknown, Verified 03/28/23:) Anaphylaxis shellfish derived Allergy (Unknown, Verified 03/28/23:) Anaphylaxis HPI HPI Comments History of Present Illness Details 37 y.o F with PMH of chronic LBP and recurrent sinusitis who was referred to us for enteritis noted on CT in January. Has had gastrointestinal complaints since childhood - had EGD/colo when she was 12. Was diagnosed with allergic reflux . Was given PPI therapy which she has not been taking x decades. No hx of esophageal strictures or dysphagia. Takes TUMS 1-2 times a day. Smokes 0.5 PPD. Takes ibuprofen frequently almost 4-5 times a day. Was seen in ER for LBP in January and incidentally noted to have thickened small bowel loops - pt did not have any abd pain, N,V,D at that time; and this was an incidental finding. [facility] Medical History Acute sinus infection Back pain Cellulitis Fall (on) (from) other stairs and steps, initial encounter Folliculitis Gastroenteritis Lumbar spine pain Onychomycosis Regional enteritis of small intestine Second degree burn of forearm Sinusitis chronic, frontal Superficial burn of forearm Tinea pedis Trapezius muscle spasm Upper respiratory tract infection Surgical History History of esophagogastroduodenoscopy (EGD) Hx of colonoscopy Family History Maternal Grandmother Substance use disorder Mental health disorder Paternal Grandfather No problems noted. Maternal Grandfather Mental health disorder Social History Housing: Apartment Patient Tobacco Use Status: Current everyday Tobacco user Cigarettes Per Day: 10 e-Cigarette/Vaping Use: Never Used Current occupational status: unemployed Cognitive needs: No Hearing needs: No Vision needs: Yes Review of Systems Const All systems reviewed & are unremarkable except as noted in HPI and below Physical Exam Vital Signs: Last Vital Signs Pulse 53 03/28/23 09:26 BP 92/54 L 03/28/23 09:26 BMI result Body Mass Index 30.3 Gen appear: NAD HEENT: nonicteric, no cervical lymphadenopathy Chest: CTA CVS: Regular S1/S2 Abd: soft, nontender, nondistended, bowel sounds + Ext: no peripheral edema Neuro: A/Ox3, noted to move all extremities spontaneously Psych: interacting appropriately Assessment & Plan Assessment & Plan (1) GERD (gastroesophageal reflux disease): Code(s): K21.9 - Gastro-esophageal reflux disease without esophagitis (2) Enteritis: Code(s): K52.9 - Noninfective gastroenteritis and colitis, unspecified Plan Reviewed wiht the pt that thickened bowel loops incidentally noted on CT done for kower back pain are of unclear clinical significance in the absence of any correlating s/sx and as such do not need any further evaluation while she is asymptomatic. In terms of her past history of allergic reflux and ongoing persistent GERD, will set her up for EGD to r/o erosive esophagitis, EoE. Requests PPI for now for symptomatic relief however she is aware that this will be done OFF ppi therapy x 2 weeks. Pt may take mylanta or tums PRN for break through sx. Follow up after EGD Medications: New omeprazole 20 mg PO DAILY 90 caps 0RF Coding Level of Care Code New Pt Level 4 (80891) Diagnoses GERD (gastroesophageal reflux disease) K21.9 Enteritis K52.9
[2023-03-28 09:26] VITALS: BP 92/54; PULSE 53; BMI 30.3
== END 2023-03-28 10:36 | disposition home or self-care (01) ==
PROVIDERS: PCP Internal Medicine; Visit Provider Internal Medicine
DX: K21.9 Gastro-esophageal reflux disease without esophagitis (principal); K52.9 Noninfective gastroenteritis and colitis, unspecified
CPT/HCPCS: 99204

== ENCOUNTER → 2023-03-28 09:22 | Outpatient (BNVA) | payer OTHER, SELFPAY | PROVIDERS: PCP Internal Medicine; Visit Provider Internal Medicine | DX: K21.9 Gastro-esophageal reflux disease without esophagitis (principal); K52.9 Noninfective gastroenteritis and colitis, unspecified | CPT/HCPCS: 99202 ==

== ENCOUNTER 2023-04-21 09:59 | Outpatient (AMB) | payer OTHER, SELFPAY ==
[2023-04-21 10:16] VITALS: BP 122/78; PULSE 70; RESP 14; O2SAT 99; BMI 31.1
--- NOTE | 2023-04-21 10:16 | A.OFFVIS_ITS ---
Intake Vital Signs 04/21/23 10:16 Height 5 ft 4 in Weight 181 lb BMI 31.1 BP 122/78 Blood Pressure Location Rt brachial Position Sitting Respiration 14 Pulse 70 Pulse Source Pulse Oximeter Pulse Oximetry (%) 99 Oxygen Delivery Method Room Air Intake Visit Reasons: 2 Month Follow Up Allergies tree nut Allergy (Intermediate, Verified 03/28/23 09:26) Stomach upset, hived, itchiness fish oil Allergy (Mild, Verified 03/28/23 09:28) Unknown seafood Allergy (Unknown, Verified 03/28/23 09:26) Anaphylaxis shellfish derived Allergy (Unknown, Verified 03/28/23 09:26) Anaphylaxis HPI 2 Month Follow Up HPI Details 37-year-old female is presenting today for a two-month follow-up. She reports severe shooting sciatic pain from her low back to the hip region down to her leg. She reports weakness in her right leg. Her right sided hip pain is worse than left side. She states that her pain is miserable and the same as it was before physical therapy. She attended physical therapy twice a week for eight weeks for total of 16 sessions. Her last session of physical therapy at [facility] in [place], on 04/20/23. She tried swimming and traction therapy at physical therapy with minimal benefits. She feels that PT has helped improve her mobility and function but not significantly improved her pain. She has a scheduled appointment for an MRI scan on 05/01/23. She used to work 55 hours a week but is currently working only 22 hours due to pain, which is affecting her financially. She has a scheduled appointment for an MRI scan on 05/01/23. She used to work 55 hours a week but is currently working only 22 hours due to pain, which is affecting her financially. She has not had any injections in the past. [facility] Medical History Acute sinus infection Back pain Cellulitis Fall (on) (from) other stairs and steps, initial encounter Folliculitis Gastroenteritis Lumbar spine pain Onychomycosis Regional enteritis of small intestine Second degree burn of forearm Sinusitis chronic, frontal Superficial burn of forearm Tinea pedis Trapezius muscle spasm Upper respiratory tract infection Surgical History History of esophagogastroduodenoscopy (EGD) Hx of colonoscopy Family History Maternal Grandmother Substance use disorder Mental health disorder Paternal Grandfather No problems noted. Maternal Grandfather Mental health disorder Social History Housing: Apartment Patient Tobacco Use Status: Current everyday Tobacco user Cigarettes Per Day: 10 e-Cigarette/Vaping Use: Never Used Current occupational status: unemployed Cognitive needs: No Hearing needs: No Vision needs: Yes Review of Systems Const All systems reviewed & are unremarkable except as noted in HPI and below Physical Exam Vital Signs: Last Vital Signs Pulse 70 04/21/23 10:16 Resp 14 04/21/23 10:16 BP 122/78 04/21/23 10:16 Pulse Ox 99 04/21/23 10:16 Oxygen Delivery Method Room Air 04/21/23 10:16 BMI result Body Mass Index 31.1 General: Appears afebrile. Alert and oriented. Mood and affect appropriate. Follows and participates in conversation appropriately. Respiratory effort is unlabored. Able to transition from sit to stand unassisted. Ambulates with bilaterally normal heel strike and toe off. Results Reviewed Results Reviewed: No imaging is available for review. Assessment & Plan Assessment & Plan (1) Bilateral hip pain: Code(s): M25.551 - Pain in right hip; M25.552 - Pain in left hip Plan Discussed epidural steroid injections as a possible treatment option for pain management depending on MRI findings. Ordered an x-ray of the bilateral hip for further evaluation. I encouraged her to continue stretching exercises at home. The patient will follow-up for review of MRI reports. Once, I have reviewed the MRI images and report, we can plan for epidural steroid injection in combination with exercises for longer-term relief. Scribed for Dr. Ontiveros by Pavel Jones, medical officer, on 04/21/2023. I, Dr. Ontiveros, have personally reviewed and agree with the information entered by the scribe. Orders: Orders XR hips ADAM min 3V Today M25.551 - Pain in right hip, M25.552 - Pain in left hip Coding Level of Care Code Est Pt Level 3 (55943) Diagnoses Bilateral hip pain M25.551; M25.552
== END 2023-04-21 10:31 | disposition home or self-care (01) ==
PROVIDERS: PCP Internal Medicine; Visit Provider Internal Medicine
DX: M25.551 Pain in right hip (principal); M25.552 Pain in left hip
CPT/HCPCS: 99213

== ENCOUNTER → 2023-04-21 09:59 | Outpatient (BNVA) | payer OTHER, SELFPAY | PROVIDERS: PCP Internal Medicine; Visit Provider Internal Medicine | DX: M25.551 Pain in right hip (principal); M25.552 Pain in left hip | CPT/HCPCS: 99212 ==

== ENCOUNTER 2023-05-01 10:14 | Outpatient (REF) | payer OTHER, SELFPAY ==
--- NOTE | ~2023-05-01 | MR_ITS ---
EXAMINATION: MR LUMBAR SPINE WITHOUT CONTRAST CLINICAL INFORMATION: Low extremity radiculopathy right leg. COMPARISON: None. TECHNIQUE: Multiplanar, multisequence imaging was obtained. FINDINGS: VERTEBRAL BODIES AND PARASPINAL STRUCTURES: There is severe disc space narrowing with chronic fatty marrow endplate changes and anterior ossific spurring at the T11-T12 level. Moderate to severe loss of disc height also evident at the L5-S1 level. There are no compression fractures or subluxations. The paraspinal soft tissues appear normal. CONUS MEDULLARIS AND CAUDA EQUINE: The distal cord, conus tip, and cauda equina nerve roots are normal. SPINAL LEVELS: L1-L2, L2-L3, and L3-L4: Well-hydrated normal appearance of the discs without central canal stenosis or foraminal narrowing. Mild facet arthropathy at the L2-L3 and L3-L4 levels. L4-L5: Mild generalized disc bulge and moderate facet arthropathy. No central canal stenosis. Small left posterolateral annular fissure. Mild left foraminal narrowing. L5-S1: Severe loss of disc height with a generalized disc bulge and very small central disc protrusion. Mild facet arthropathy. No central canal stenosis or foraminal narrowing. MR/MR lumbar spine wo con IMPRESSION: Severe degenerative disc disease with a mild disc bulge and anterior endplate spurring at the T11-T12 level. Mild kyphotic curvature of the spine centered at this level. No focal disc protrusion. Mild diffuse disc bulge and moderate facet arthropathy at the L4-L5 level with mild left foraminal narrowing. Moderate to severe spondylosis at the L5-S1 level with a very small central disc protrusion. No central canal stenosis or foraminal narrowing.
--- NOTE | ~2023-05-01 | XR_ITS ---
EXAMINATION: XR BILATERAL HIPS WITH AP PELVIS CLINICAL INFORMATION: Right hip pain COMPARISON: CT 02/07/2023 TECHNIQUE: AP and frog-leg lateral views of each hip and an AP view of the pelvis. FINDINGS: No fracture. Hip joint spaces are maintained with minimal marginal osteophyte formation along the acetabular rim.. Alignment is anatomic. Sacroiliac joints and pubic symphysis are normal. No abnormal soft tissue calcifications. XR/XR hips ADAM min 3V IMPRESSION: No acute fracture or malalignment. Minimal bilateral hip osteoarthritis.
== END 2023-05-01 10:15 | disposition home or self-care (01) ==
LOC: HO.MRI 10:14
PROVIDERS: PCP Internal Medicine; Visit Provider Internal Medicine
DX: M51.37 Other intervertebral disc degeneration, lumbosacral region (principal); M54.16 Radiculopathy, lumbar region; R20.2 Paresthesia of skin; M25.551 Pain in right hip; M25.552 Pain in left hip
CPT/HCPCS: 72148; 73522

== ENCOUNTER 2023-05-03 08:40 | Outpatient (AMB) | payer OTHER, SELFPAY ==
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
== END 2023-05-03 11:38 | disposition home or self-care (01) ==
LOC: HO.HMGC 08:41
PROVIDERS: PCP Internal Medicine; Visit Provider Internal Medicine
DX: M54.16 Radiculopathy, lumbar region (principal); M51.37 Other intervertebral disc degeneration, lumbosacral region
CPT/HCPCS: 99213

== ENCOUNTER 2023-06-14 06:03 | Outpatient (REF) | payer OTHER, SELFPAY ==
--- NOTE | ~2023-06-14 | FL_ITS ---
EXAMINATION: XR FLUOROSCOPY WITH IMAGES CLINICAL INFORMATION: Radiculopathy, lumbar region. COMPARISON: None available. TECHNIQUE: Fluoroscopy Supervised By: Dr. Abelardo Ontiveros. Fluoroscopy Time: 0.24 seconds. Cumulative Dose: 14.858 mGy. DAP: 2.6766 Gycm2. Images: 2. FINDINGS: Images demonstrate needle placement and contrast injection adjacent to the bilateral lateral L4 vertebrae FL/FL guidance in treatment room IMPRESSION: Fluoroscopic guidance for pain management procedure.
== END 2023-06-14 06:04 | disposition home or self-care (01) ==
LOC: CF 06:03
PROVIDERS: Visit Provider Internal Medicine
DX: M54.16 Radiculopathy, lumbar region (principal)
CPT/HCPCS: 64483; J1040; J1100; J2795; J3301; Q9967

== ENCOUNTER 2023-06-14 07:38 | Outpatient (AMB) | payer OTHER, SELFPAY ==
[2023-06-14 07:43] VITALS: BP 122/74; PULSE 71; RESP 14; O2SAT 98
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
[2023-06-14 08:34] VITALS: BP 130/66; PULSE 65; RESP 14; O2SAT 99
== END 2023-06-14 08:08 | disposition home or self-care (01) ==
LOC: HO.PMCPRC 07:38
PROVIDERS: PCP Internal Medicine; Visit Provider Internal Medicine
DX: M54.16 Radiculopathy, lumbar region (principal)
CPT/HCPCS: 64483

== ENCOUNTER → 2023-06-29 09:51 | Outpatient (BNV) | payer OTHER, SELFPAY | PROVIDERS: PCP Internal Medicine; Visit Provider Internal Medicine | DX: K21.00 Gastro-esophageal reflux disease with esophagitis, without bleeding (principal); K29.80 Duodenitis without bleeding | CPT/HCPCS: 43239 ==

== ENCOUNTER → 2023-06-29 09:51 | Day surgery (SDC) | payer OTHER, SELFPAY ==
[2023-05-09 11:57] VITALS: BMI 30.2
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
[2023-06-29 10:27] LABS: UPreg QC Valid YES; Urine Pregnancy NEGATIVE (NEGATIVE)
[2023-06-29] MEDS: Lactated Ringers 1,000 ML 100 ML IVCONT (10:29)
[2023-06-29 10:39] VITALS: BP 137/74; PULSE 68; RESP 18; TEMP 36.6; O2SAT 98
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
--- NOTE | 2023-06-29 11:50 | P.OP_ITS ---
Operative Note Operative Note Date of Service: 06/29/23 Narrative: Procedure: Esophagogastroduodenoscopy Endoscopist: Vivienne Sauceda MD Indication: GERD Anesthesia Provider: Marine Mercado CRNA Anesthesia Type: MAC ?? EGD Procedure:?? The procedure, indications, preparation and potential complications were revi ewed with the patient, who indicated understanding and gave written informed consent to proceed. A physical exam was performed. The endoscope was introduced through the mouth, and advanced to the second part of duodenum. The mucosa was carefully examined on slow withdrawal of the endoscope. The patient tolerated the procedure well. There were no immediate complications.? ? EGD Findings:? * Esophagus:? Linear ulcerations in the lower esophagus were noted. The Z line was at 35 cm. There is a small hiatal hernia with the diaphragmatic pinch at 37 cm. Middle and lower esophagus forceps biopsies were obtained to rule out eosinophilic esophagitis. * Stomach:? Normal mucosa was noted in the stomach. Random gastric biopsies were taken to rule out H Pylori infection. * Duodenum:? Erythema and small erosions were noted in the duodenal bulb. Cold forceps biopsies were taken from duodenal bulb and second portion of the duodenum to rule out celiac sprue. ? EGD Impressions:? * Grade C esophagitis (biopsy) * Hiatal hernia * Normal stomach (biopsy) * Bulbar duodenitis (biopsy) ?? Recommendations:?? * Follow biopsy results. Our office will call or send a letter with results within 7-10 days. * Resume PPI therapy at 20mg BID for 8 weeks and then once daily. Will need treatment indefinitely due to know erosive esophagitis. * If H pylori +, patient will be prescribed eradication therapy followed by test of cure. * Avoid NSAIDs. Above has been reviewed with the patient.
[2023-06-29 12:15] VITALS: BP 123/67; PULSE 74; RESP 18; TEMP 36.4; O2SAT 97
[2023-06-29 12:30] VITALS: BP 131/76; PULSE 53; RESP 18; TEMP 36.1; O2SAT 98
== END | disposition home or self-care (01) ==
PROVIDERS: Nurse Practitioner; PCP Internal Medicine; Visit Provider Internal Medicine
PROC: 0DJ08ZZ Inspection of Upper Intestinal Tract, Via Natural or Artificial Opening Endoscopic (ICD-10-PCS; CPT 43235; principal; 2023-06-29 11:30)
DX: K21.9 Gastro-esophageal reflux disease without esophagitis (principal); K20.80 Other esophagitis without bleeding; K29.80 Duodenitis without bleeding; K44.9 Diaphragmatic hernia without obstruction or gangrene; K52.9 Noninfective gastroenteritis and colitis, unspecified; J32.1 Chronic frontal sinusitis; Z79.51 Long term (current) use of inhaled steroids; Z79.899 Other long term (current) drug therapy; F17.210 Nicotine dependence, cigarettes, uncomplicated
CPT/HCPCS: 43239; 81025; 88305; 88342; J2250; J2704; J3010

== ENCOUNTER 2023-07-17 08:51 | Outpatient (AMB) | payer OTHER, SELFPAY ==
[2023-07-17 09:03] VITALS: BP 126/74; PULSE 79; RESP 12; O2SAT 96; BMI 29.7
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
== END 2023-07-17 09:21 | disposition home or self-care (01) ==
PROVIDERS: PCP Internal Medicine; Visit Provider Internal Medicine
DX: M54.16 Radiculopathy, lumbar region (principal)
CPT/HCPCS: 99213

== ENCOUNTER → 2023-07-17 08:51 | Outpatient (BNVA) | payer OTHER, SELFPAY | PROVIDERS: PCP Internal Medicine; Visit Provider Internal Medicine | DX: K44.9 Diaphragmatic hernia without obstruction or gangrene (principal); K29.80 Duodenitis without bleeding; K50.00 Crohn's disease of small intestine without complications; K52.1 Toxic gastroenteritis and colitis; T39.315A Adverse effect of propionic acid derivatives, initial encounter; M54.16 Radiculopathy, lumbar region | CPT/HCPCS: 99212 ==

== ENCOUNTER 2023-07-17 11:43 | Outpatient (AMB) | payer OTHER, SELFPAY ==
--- NOTE | 2023-07-17 11:43 | A.OFFVIS_ITS ---
Intake Intake Visit Reasons: S/P EGD; Dr. Sauceda Intake Note: CC: questions what she should stay away from - she was told she has ulcers and would like to now what diet she should be on. Allergies tree nut Allergy (Intermediate, Verified 07/17/23 11:44) Stomach upset, hived, itchiness fish oil Allergy (Mild, Verified 07/17/23 11:44) Unknown seafood Allergy (Unknown, Verified 07/17/23 11:44) Anaphylaxis shellfish derived Allergy (Unknown, Verified 07/17/23 11:44) Anaphylaxis HPI S/P EGD; Dr. Sauceda HPI Details 37 yr old f being called for f/u RECAP: Pt of Dr Sauceda Has had gastrointestinal complaints since childhood - had EGD/colo when she was 12. Was diagnosed with allergic reflux . Was given PPI therapy which she had not been taking x decades. Smokes 0.5 PPD. Takes ibuprofen frequently almost 4-5 times a day. Was seen in ER for LBP in January and incidentally noted to have thickened small bowel loops --incidental finding EGD:07/13 * Grade C esophagitis (biopsy) * Hiatal hernia * Normal stomach (biopsy) * Bulbar duodenitis (biopsy) bx consistent with esophagitis, stomach neg for H pylori INTERIM: she has cut out coffee, cutting down on carbonated drinks, cut out cheese taking omeprazole 40 mg BID and working well she is not taking ibuprofen, she does have back issues appetite is good no dysphagia denies diarrhea, or constipation, no blood in stool still smoking 0.5 PPD--trying to cut down EXAM: limited, looks normal -talking easily, A/P: 1/ GERD, and probable NSAID related sma ll bowel injury PLAN: 1/ cont with omeprazole 40 mg BID till r epeat EGD rthen can titrated down 2/ add MV and Vit D supplment 1000 units daily PFSH Medical History Lumbar spine pain Back pain Regional enteritis of small intestine Acute sinus infection Onychomycosis Gastroenteritis Second degree burn of forearm Superficial burn of forearm Upper respiratory tract infection Cellulitis Folliculitis Tinea pedis Trapezius muscle spasm Fall (on) (from) other stairs and steps, initial encounter Sinusitis chronic, frontal Surgical History History of esophagogastroduodenoscopy (EGD) Hx of colonoscopy Family History Maternal Grandmother Substance use disorder Mental health disorder Paternal Grandfather No problems noted. Maternal Grandfather Mental health disorder Housing: Apartment Patient Tobacco Use Status: Current everyday Tobacco user Tobacco use type: Cigarette Cigarettes Per Day: 10 e-Cigarette/Vaping Use: Never Used Current occupational status: unemployed Cognitive needs: No Hearing needs: No Vision needs: Yes Assessment & Plan Assessment & Plan Medications: New nicotine 1 patch transdermal Q24H 14 ea 0RF nicotine 1 patch transdermal Q24H 42 ea 0RF Telehealth Telehealth Location of provider rendering services: practice address Location of patient: address on file Patient Identification confirmed using: Name, : Yes Telehealth method: video Patient verbally consented to treatment: Yes Patient verbally consented to billing insurance company: Yes Patient informed of any privacy concerns related to visit: Yes Minutes spent on Phone/Video with Pt.: 14 Coding Level of Care Code Tele Est Pt Level 3 (11206)
== END 2023-07-17 14:49 | disposition home or self-care (01) ==
LOC: HO.HGI 11:43
PROVIDERS: PCP Internal Medicine; Visit Provider Internal Medicine Gastroenterology
DX: K21.00 Gastro-esophageal reflux disease with esophagitis, without bleeding (principal)
CPT/HCPCS: 99213

== ENCOUNTER 2023-11-07 08:53 | Day surgery (SDC) | payer OTHER, SELFPAY ==
--- NOTE | 2023-09-19 13:32 | P.CONAN_ITS ---
HPI - Anesthesia Eval Consult details Narrative: 37yo F for Upper Endoscopy s/p same 06/2023 with [facility] Active Problems Active Problems: All Active Problems (Updated 06/29/23 @ 12:14 by Vivienne Sauceda MD) Erosive esophagitis (Acute) Lumbar radicular pain (Acute) Bilateral hip pain (Acute) Enteritis (Acute) GERD (gastroesophageal reflux disease) (Acute) Paresthesia of right leg (Acute) Right lumbar radiculitis (Acute) Degeneration, intervertebral disc, lumbosacral (Acute) Gastroenteritis (Acute) Acute sinus infection (Acute) Second degree burn of forearm (Acute) Superficial burn of forearm (Acute) Cellulitis (Acute) Folliculitis (Acute) Sinusitis chronic, frontal (Acute) Fall (on) (from) other stairs and steps, initial encounter (Acute) Onychomycosis (Acute) Regional enteritis of small intestine (Acute) Upper respiratory tract infection (Acute) Tinea pedis (Acute) Trapezius muscle spasm (Acute) Back pain (Acute) Lumbar spine pain (Acute) Heartburn (Acute) Abnormal abdominal CT scan (Acute) Hospital discharge follow-up (Acute) Past Medical History Medical History Lumbar spine pain Back pain Regional enteritis of small intestine Acute sinus infection Onychomycosis Gastroenteritis Second degree burn of forearm Superficial burn of forearm Upper respiratory tract infection Cellulitis Folliculitis Tinea pedis Trapezius muscle spasm Fall (on) (from) other stairs and steps, initial encounter Sinusitis chronic, frontal Family History Family History Maternal Grandmother Substance use disorder Mental health disorder Paternal Grandfather No problems noted. Maternal Grandfather Mental health disorder Family history of problems with anesthesia: No Surgical History Surgical History History of esophagogastroduodenoscopy (EGD) Hx of colonoscopy History of Problems with Anesthesia: No Social History Social History Housing: Apartment Patient Tobacco Use Status: Current everyday Tobacco user Tobacco use type: Cigarette Cigarettes Per Day: 10 e-Cigarette/Vaping Use: Never Used Current occupational status: unemployed Cognitive needs: No Hearing needs: No Vision needs: Yes Meds Allergies Allergy/AdvReac Type Severity Reaction Status Date / Time tree nut Allergy Intermediate Stomach Verified 07/17/23 11:44 upset, hived, itchiness fish oil Allergy Mild Unknown Verified 07/17/23 11:44 seafood Allergy Unknown Anaphylaxis Verified 07/17/23 11:44 shellfish derived Allergy Unknown Anaphylaxis Verified 07/17/23 11:44 Home Medications Medication Instructions Recorded Confirmed Last Taken Type levocetirizine 5 mg tablet (Xyzal) 5 mg PO DAILY 07/17/23 07/17/23 Unknown History omeprazole 20 mg capsule,delayed 40 mg PO BID 07/17/23 Unknown History release Exam Pertinent Lab Results Pertinent Lab Results: Laboratory Tests 02/07/23 21:11 WBC 13.2 H Hgb 12.9 Hct 37.7 Plt Count 356 D Sodium 139 Potassium 3.9 D Chloride 107 Carbon Dioxide 22 BUN 13 Creatinine 0.75 Assessment and Plan Assessment Anesthesia Assessment: Chart Reviewed Final Anesthetic Review Family History of Problems with Anesthesia: No History of Problems with Anesthesia: No
--- NOTE | 2023-11-06 09:31 | HO.ANESPROP2 ---
HPI - Anesthesia Eval Consult details Narrative: 38yo F for Upper Endoscopy s/p same 06/2023 with [facility] Active Problems Active Problems: All Active Problems (Updated 06/29/23 @ 12:14 by Vivienne Sauceda MD) Erosive esophagitis (Acute) Lumbar radicular pain (Acute) Bilateral hip pain (Acute) Enteritis (Acute) GERD (gastroesophageal reflux disease) (Acute) Paresthesia of right leg (Acute) Right lumbar radiculitis (Acute) Degeneration, intervertebral disc, lumbosacral (Acute) Gastroenteritis (Acute) Acute sinus infection (Acute) Second degree burn of forearm (Acute) Superficial burn of forearm (Acute) Cellulitis (Acute) Folliculitis (Acute) Sinusitis chronic, frontal (Acute) Fall (on) (from) other stairs and steps, initial encounter (Acute) Onychomycosis (Acute) Regional enteritis of small intestine (Acute) Upper respiratory tract infection (Acute) Tinea pedis (Acute) Trapezius muscle spasm (Acute) Back pain (Acute) Lumbar spine pain (Acute) Heartburn (Acute) Abnormal abdominal CT scan (Acute) Hospital discharge follow-up (Acute) Past Medical History Medical History Lumbar spine pain Back pain Regional enteritis of small intestine Acute sinus infection Onychomycosis Gastroenteritis Second degree burn of forearm Superficial burn of forearm Upper respiratory tract infection Cellulitis Folliculitis Tinea pedis Trapezius muscle spasm Fall (on) (from) other stairs and steps, initial encounter Sinusitis chronic, frontal Family History Family History Maternal Grandmother Substance use disorder Mental health disorder Paternal Grandfather No problems noted. Maternal Grandfather Mental health disorder Family history of problems with anesthesia: No Surgical History Surgical History History of esophagogastroduodenoscopy (EGD) Hx of colonoscopy History of Problems with Anesthesia: No Social History Social History Housing: Apartment Patient Tobacco Use Status: Current everyday Tobacco user Tobacco use type: Cigarette Cigarettes Per Day: 10 e-Cigarette/Vaping Use: Never Used Current occupational status: unemployed Cognitive needs: No Hearing needs: No Vision needs: Yes Meds Allergies Allergy/AdvReac Type Severity Reaction Status Date / Time tree nut Allergy Intermediate Stomach Verified 07/17/23 11:44 upset, hived, itchiness fish oil Allergy Mild Unknown Verified 07/17/23 11:44 seafood Allergy Unknown Anaphylaxis Verified 07/17/23 11:44 shellfish derived Allergy Unknown Anaphylaxis Verified 07/17/23 11:44 Home Medications Medication Instructions Recorded Confirmed Last Taken Type levocetirizine 5 mg tablet (Xyzal) 5 mg PO DAILY 07/17/23 07/17/23 Unknown History omeprazole 20 mg capsule,delayed 40 mg PO BID 07/17/23 Unknown History release Assessment and Plan Assessment Anesthesia Assessment: Chart Reviewed Final Anesthetic Review Family History of Problems with Anesthesia: No History of Problems with Anesthesia: No
[2023-11-07 09:33] VITALS: BP 136/83; PULSE 68; RESP 16; TEMP 36.6; O2SAT 97
[2023-11-07 09:33] LABS: UPreg QC Valid YES; Urine Pregnancy NEGATIVE (NEGATIVE)
--- NOTE | 2023-11-07 11:02 | MHC.SHP ---
Pre-Procedural Eval Section A - 24 Hr Update-Section A only Date of Service: 11/07/23 Section B - Complete if H&P > 30 days Chief Complaint: Esophagitis, unspecified without bleeding Details of Present Illness: Lumbar spine pain Back pain Regional enteritis of small intestine Acute sinus infection Onychomycosis Gastroenteritis Second degree burn of forearm Superficial burn of forearm Upper respiratory tract infection Cellulitis Folliculitis Tinea pedis Trapezius muscle spasm Fall (on) (from) other stairs and steps, initial encounter Sinusitis chronic, frontal Surgical History History of esophagogastroduodenoscopy (EGD) Hx of colonoscopy Allergies: Allergies Allergy/AdvReac Type Severity Reaction Status Date / Time tree nut Allergy Intermediate Stomach Verified 07/17/23 11:44 upset, hived, itchiness fish oil Allergy Mild Unknown Verified 07/17/23 11:44 seafood Allergy Unknown Anaphylaxis Verified 07/17/23 11:44 shellfish derived Allergy Unknown Anaphylaxis Verified 07/17/23 11:44 Review of Systems Review of Systems Comment: Ten point ROS negative Exam Exam Comment: Gen appear: No acute distress HEENT: no icterus Chest: No overt resp distress Abd: soft, nontender, nondistended Psych: Stable affect, answering questions appropriately Neuro: A/Ox3 noted to move all extremities spontaneously Ext: no peripheral edema Plan Diagnosis/Plan: Unchanged I have reviewed the history and physical and performed a pertinent physical examination on my patient. No changes have occurred unless specified. Time Spent With Patient Time: Total time managing care of this patient today ____ minutes.
--- NOTE | 2023-11-07 11:17 | P.OP_ITS ---
Operative Note Operative Note Date of Service: 11/07/23 Narrative: Procedure: Esophagogastroduodenoscopy Endoscopist: Vivienne Sauceda MD Indication: Esophagitis Anesthesia Provider: Dr Delicia Collier Anesthesia Type: MAC ?? EGD Procedure:?? The procedure, indications, preparation and potential complications were reviewed with the patient, who indicated understanding and gave written informed consent to proceed. A physical exam was performed. The endoscope was introduced through the mouth, and advanced to the second part of duodenum. The mucosa was carefully examined on slow withdrawal of the endoscope. The patient tolerated the procedure well. There were no immediate complications.? ? EGD Findings:? * Esophagus:? Normal esophageal mucosa was noted. The Z line was at 35 cm. There is a small hiatal hernia with the diaphragmatic pinch at 37 cm. * Stomach:? Normal mucosa was noted in the stomach. Retroflexion in the cardia showed Hill grade III hernia. * Duodenum:? Normal mucosa noted in the duodenum. ? EGD Impressions:? * Normal esophageal mucosa * Hiatal hernia * Normal stomach * Normal duodenum ?? Recommendations:?? * Cont PPI therapy as is * Will likely need it lifelong * Barium esophagogram to evaluate the hiatal hernia further Above has been reviewed with the patient.
[2023-11-07 11:20] VITALS: BP 102/54; PULSE 61; RESP 18; TEMP 36.6; O2SAT 99
[2023-11-07 11:35] VITALS: BP 107/63; PULSE 51; RESP 18; O2SAT 98
[2023-11-07 11:50] VITALS: BP 117/69; PULSE 50; RESP 18; TEMP 36.4; O2SAT 98
== END 2023-11-07 12:24 | disposition home or self-care (01) ==
PROVIDERS: Nurse Practitioner; PCP Internal Medicine; Visit Provider Internal Medicine
PROC: 0DJ08ZZ Inspection of Upper Intestinal Tract, Via Natural or Artificial Opening Endoscopic (ICD-10-PCS; CPT 43235; principal; 2023-11-07 11:00)
DX: K44.9 Diaphragmatic hernia without obstruction or gangrene (principal)
CPT/HCPCS: 43235; 81025; J2250; J2704

== ENCOUNTER → 2023-11-07 08:53 | Outpatient (BNV) | payer OTHER, SELFPAY | PROVIDERS: PCP Internal Medicine; Visit Provider Internal Medicine | DX: K20.90 Esophagitis, unspecified without bleeding (principal) | CPT/HCPCS: 43235 ==

== ENCOUNTER 2023-11-20 11:31 | Outpatient (AMB) | payer OTHER, SELFPAY ==
[2023-11-20 11:48] VITALS: BP 122/79; PULSE 70; BMI 26.1
--- NOTE | 2023-11-20 11:48 | A.OFFVIS_ITS ---
Intake Vital Signs 11/20/23 11:48 Height 5 ft 4 in Weight 152 lb BMI 26.1 BP 122/79 Blood Pressure Location Lt brachial Position Sitting Pulse 70 Intake Visit Reasons: s/p egd Intake Note: Patient returns to in office visit today s/p EGD. CC: Patient reports she was having nausea because she was sick last week. She also states that when her allergies are bothering she gets very nauseous. She states she gets diarrhea sometimes depending on what she eats. Broach Trouble Shooter Required: No Accompanied by: Self / Same As Patient Allergies tree nut Allergy (Intermediate, Verified 11/20/23 11:59) Stomach upset, hived, itchiness fish oil Allergy (Mild, Verified 11/20/23 11:59) Unknown No Known Drug Allergies Allergy (Unknown, Verified 11/20/23 11:59) Unknown seafood Allergy (Unknown, Verified 11/20/23 11:59) Anaphylaxis shellfish derived Allergy (Unknown, Verified 11/20/23 11:59) Anaphylaxis HPI HPI Comments History of Present Illness Details 37 y.o F with PMH of chronic LBP and rec urrent sinusitis who was referred to us for enteritis noted on CT in January. Has had gastrointestinal complaints since childhood - had EGD/colo when she was 12. Was diagnosed with allergic reflux . Was given PPI therapy which she has not been taking x decades. No hx of esophageal strictures or dysphagia. Takes TUMS 1-2 times a day. Smokes 0.5 PPD. Takes ibuprofen frequently almost 4-5 times a day. Was seen in ER for LBP in January and incidentally noted to have thickened small bowel loops - pt did not have any abd pain, N,V,D at that time; and this was an incidental finding. EGD Impressions:? * Grade C esophagitis (biopsy) * Hiatal hernia * Normal stomach (biopsy) * Bulbar duodenitis (biopsy) A. Duodenum, biopsy: Duodenal mucosa with preserved villi and no specific change. B. Stomach, random, biopsy: Gastric antral and body mucosa with congestion and focal minimal chronic inactive inflammation; negative for intestinal metaplasia and dysplasia. C. Esophagus, lower, biopsy: Squamous mucosa with hyperplasia, few intraepithelial neutrophils, and intraepithelial eosinophils (up to 10 per high power field) consistent with esophagitis; not diagnostic for eosinophilic esophagitis at this time; no columnar mucosa present. D. Esophagus, middle, biopsy: Squamous mucosa with mild hyperplasia and rare intraepithelial eosinophils (up to 1 per high power field) consistent with esophagitis; not diagnostic for eosinophilic esophagitis at this time; no columnar mucosa present 11/07/23: EGD Impressions:? * Normal esophageal mucosa * Hiatal hernia * Normal stomach * Normal duodenum 11/20/23: Reviewed results that esophagitis healed up with ppi therapy. Pt also avoiding dietary triggers. [facility] Medical History Lumbar spine pain Back pain Regional enteritis of small intestine Acute sinus infection Onychomycosis Gastroenteritis Second degree burn of forearm Superficial burn of forearm Upper respiratory tract infection Cellulitis Folliculitis Tinea pedis Trapezius muscle spasm Fall (on) (from) other stairs and steps, initial encounter Sinusitis chronic, frontal Surgical History History of esophagogastroduodenoscopy (EGD) Hx of colonoscopy Family History Maternal Grandmother Substance use disorder Mental health disorder Paternal Grandfather No problems noted. Maternal Grandfather Mental health disorder Social History Housing: Apartment Patient Tobacco Use Status: Current everyday Tobacco user Tobacco use type: Cigarette Cigarettes Per Day: 10 e-Cigarette/Vaping Use: Never Used Second Hand Smoke Exposure: No Current occupational status: unemployed Cognitive needs: No Hearing needs: No Vision needs: Yes Review of Systems Const All systems reviewed & are unremarkable except as noted in HPI and below Physical Exam Vital Signs: Last Vital Signs Pulse 70 11/20/23 11:48 BP 122/79 11/20/23 11:48 BMI result Body Mass Index 26.1 NAD Nonicteric no overt resp distress abd soft, nondistended A/Ox3, norm gait Assessment & Plan Assessment & Plan (1) Erosive esophagitis: Code(s): K22.10 - Ulcer of esophagus without bleeding (2) GERD (gastroesophageal reflux disease): Code(s): K21.9 - Gastro-esophageal reflux disease without esophagitis (3) Hiatal hernia: Code(s): K44.9 - Diaphragmatic hernia without obstruction or gangrene Plan PPI responsive erosive esophagitis. HH likely contributing. Plan: - Omeprazole refilled - Dietary triggers discussed and sample menu handed out - Barium swallow ordered - Follow up in 6 months - pt aware will attempt to lower dose to 10mg ocne daily eventually Orders: Orders [place] barium swallow Today K22.10 - Ulcer of esophagus without bleeding Medications: Refilled omeprazole 20 mg PO DAILY 90 caps 1RF K22.10 - Ulcer of esophagus without bleeding Coding Level of Care Code Est Pt Level 4 (10464) Diagnoses Erosive esophagitis K22.10 GERD (gastroesophageal reflux disease) K21.9 Hiatal hernia K44.9
== END 2023-11-20 12:18 | disposition home or self-care (01) ==
PROVIDERS: PCP Internal Medicine; Visit Provider Internal Medicine
DX: K22.10 Ulcer of esophagus without bleeding (principal); K21.9 Gastro-esophageal reflux disease without esophagitis; K44.9 Diaphragmatic hernia without obstruction or gangrene
CPT/HCPCS: 99214

== ENCOUNTER → 2023-11-20 11:31 | Outpatient (BNVA) | payer OTHER, SELFPAY | PROVIDERS: PCP Internal Medicine; Visit Provider Internal Medicine | DX: K22.10 Ulcer of esophagus without bleeding (principal); K21.9 Gastro-esophageal reflux disease without esophagitis; K44.9 Diaphragmatic hernia without obstruction or gangrene | CPT/HCPCS: 99212 ==

== ENCOUNTER 2024-01-19 09:13 | Outpatient (AMB) | payer SELFPAY ==
[2024-01-19 09:17] VITALS: BP 126/70; PULSE 72; O2SAT 97; BMI 25.8
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
== END 2024-01-19 11:24 | disposition home or self-care (01) ==
PROVIDERS: PCP Internal Medicine; Visit Provider Internal Medicine
DX: R21 Rash and other nonspecific skin eruption (principal)
CPT/HCPCS: 99213